=== PATIENT | female | born 2000 | race Caucasian/White ===

== ENCOUNTER 2020-06-06 16:24 | Emergency (ER) | payer OTHER ==
[~2020-06-06] VITALS: Ht 162.6 cm; Wt 103.1 kg
--- NOTE | 2020-06-06 19:58 | REPVR ---
PROCEDURE INFORMATION: Exam: US Nonobstetric Pelvis; Complete Exam date and time: 06/06/2020 7:34 PM Age: 19 years old Clinical indication: Pelvic pain; Additional info: R lower pelvic pain TECHNIQUE: Imaging protocol: Transabdominal pelvic nonobstetric ultrasound. Complete exam. Real time ultrasound with image documentation. COMPARISON: No relevant prior studies available. FINDINGS: Uterus/cervix: Uterus measures 7.9 x 3.5 by 4.2 cm in size. No focal uterine mass. Endometrial stripe appears homogeneous, measuring 12 mm in thickness. Right adnexa: Right ovary measures 3.4 x 1.5 x 2.0 cm in size. No dominant mass or cyst. Left adnexa: Left ovary measures 3.4 x 4.2 x 2.0 cm in size. No dominant mass or cyst. Intraperitoneal space: No abnormal volume of free fluid within the pelvis. Bladder: Urinary bladder is unremarkable Other findings: Doppler flow is documented in both ovaries. IMPRESSION: Unremarkable pelvic ultrasound. Electronically signed by: Cy Garcia On 06/06/2020 19:58:16 PM
[2020-06-06 20:16] LABS: CHLAMYDIA DNA AMPLIFICATION NEGATIVE (NEGATIVE); GC DNA AMPLIFICATION NEGATIVE (NEGATIVE)
[2020-06-06 21:07] VITALS: BP 128/72
== END 2020-06-06 21:09 | disposition home or self-care (01) ==
LOC: M ED 16:24
DX: N89.8 Other specified noninflammatory disorders of vagina (principal); R10.30 Lower abdominal pain, unspecified

== ENCOUNTER 2020-09-18 21:30 | Emergency (ER) | payer OTHER ==
[~2020-09-18] VITALS: Ht 165.1 cm; Wt 106.9 kg
[2020-09-18] MEDS ORDERED: FLUORESCEIN OPHTH 1 MG STRIP OU ONE (22:30)
[2020-09-18] MEDS ORDERED: TETRACAINE 0.5% OPHTH SOLN 4ML OU ONE (22:30)
[2020-09-18] MEDS ORDERED: CIPR0.3S6 OD (23:38)
[2020-09-18] MEDS ORDERED: CIPROFLOXACIN 0.3% OPHTH SOLN 2.5ML OD ONE (23:45)
[2020-09-19 00:24] VITALS: BP 131/74
== END 2020-09-19 00:25 | disposition home or self-care (01) ==
LOC: M ED 21:30
DX: S05.01XA Injury of conjunctiva and corneal abrasion without foreign body, right eye, initial encounter (principal); X58.XXXA Exposure to other specified factors, initial encounter; Y92.89 Other specified places as the place of occurrence of the external cause

== ENCOUNTER 2021-03-13 08:36 | Emergency (ER) | payer OTHER ==
[~2021-03-13] VITALS: Ht 165.1 cm; Wt 98.6 kg
[~2021-03-13 08:36] MED LIST: CIPR0.3S6 OD
[2021-03-13] MEDS ORDERED: PREN29CH2 PO (08:49)
[2021-03-13] MEDS ORDERED: NS 1,000 ML IV ONE (10:35)
[2021-03-13 11:39] LABS: BASO % 0.1 % (0.0-1.0); EOS % 0.3 % (0.0-3.0); HEMATOCRIT 32.9 % (36.0-47.0); HEMOGLOBIN 11.2 g/dl (12.0-15.5); LYMPH # 1.2 10^3/uL (1.5-5.0); LYMPH % 16.1 % (24.0-44.0); MEAN CORPUSCULAR HEMOGLOBIN 28.3 pg (27.0-33.0); MEAN CORPUSCULAR VOLUME 83.1 fl (80.0-96.0); MONO # 0.3 10^3/uL (0.0-0.8); MONO % 3.9 % (2.0-8.0); NEUTROPHILS % 79.3 % (36.0-66.0); PLATELET COUNT, AUTOMATED 226 10^3/uL (150-450); RED BLOOD COUNT 3.96 10^6/uL (4.00-5.40); WHITE BLOOD COUNT 7.5 10^3/uL (4.0-10.0)
[2021-03-13 12:02] VITALS: BP 124/66
[2021-03-13 12:12] LABS: ALBUMIN 2.8 GM/DL (3.2-5.2); ALT/SGPT 14 U/L (12-78); BILIRUBIN,DIRECT < 0.1 MG/DL (0.0-0.2); BILIRUBIN,TOTAL 0.4 MG/DL (0.2-1.0); BLOOD UREA NITROGEN 6 MG/DL (7-18); CALCIUM LEVEL 8.3 MG/DL (8.5-10.1); CARBON DIOXIDE LEVEL 27 MEQ/L (21-32); CHLORIDE LEVEL 106 MEQ/L (98-107); CK-MB VALUE MASS < 1.0 NG/ML (<3.6); CPK CREATINE PHOSPHOKINASE 48 U/L (26-192); FREE T4 1.05 NG/DL (0.76-1.46); GLOMERULAR FILTRATION RATE > 60.0 (>60); GLUCOSE, FASTING 75 MG/DL (70-100); MB/CK RELATIVE INDEX 2.08 (< OR =4); POTASSIUM SERUM 4.4 MEQ/L (3.5-5.1); SODIUM LEVEL 137 MEQ/L (136-145); THYROID STIMULATING HORMONE 0.671 uIU/ML (0.358-3.740); TOTAL PROTEIN 6.3 GM/DL (6.4-8.2); TROPONIN I < 0.02 NG/ML (< 0.10)
--- NOTE | 2021-03-13 21:56 | ECGEPIP ---
[facility] - ED Test Date: 2021-03-13 Pat Name: KATIE GRESHAM Department: Room: - Gender: Female [employer]: JENNY : 2000 Requested By: ALBIN GOFF PA-C Order Number: [id number] Reading MD: Yonny Goins Measurements Intervals [place] Rate: 61 P: 23 NH: 144 QRS: 44 QRSD: 86 T: 22 QT: 428 QTc: 430 Interpretive Statements Sinus rhythm with marked sinus arrhythmia NO PRIORS FOR COMPARISON Electronically Signed on 03-13-2021 21:56:05 EDT by Yonny Goins
== END 2021-03-13 12:54 | disposition home or self-care (01) ==
LOC: M ED 08:36 → EDBD 08:36 → M ED 12:54
DX: R55 Syncope and collapse (principal)

== ENCOUNTER → 2021-05-01 | Outpatient (CLI) | payer OTHER ==
[~2021-05-01] MED LIST changes: +PREN29CH2 PO
--- NOTE | 2021-05-01 15:25 | REP ---
INDICATION: PREG, GROWTH. COMPARISON: None. TECHNIQUE: Real-time sonographic evaluation of the gravid uterus performed utilizing transabdominal and endovaginal technique. FINDINGS: Estimated gestational age is24 weeks 3 days, EDC 08/18/2021. Today's measurements indicate appropriate growth. Presentation: Cephalic Placenta posterior, grade 0, without evidence of placenta previa. heart rate is recorded at 144 beats per minute. Amniotic fluid is subjectively normal. ZBIGNIEW 20.3, normal 9.8-22.0 Closed cervical length is measured at 4.1 cm. Biometry chart: BPD: 64 mm, 25 weeks 5 days, 78th percentile. HC: 231 mm, 25 weeks 1 days, 65th percentile AC: 208 mm, 25 weeks 2 days, 69th percentile Femur length: 46 mm, 25 weeks 2 days, 69th percentile HC to AC ratio: 1.11, normal range 1.02-1.21. Estimated weight: 796g, 81st percentile. anatomy: Cranium: Grossly normal Nose/lips/profile: Grossly normal Four chamber heart: Grossly normal Left ventricular outflow tract: Grossly normal Left-sided stomach: Grossly normal Bladder: Grossly normal Cord Insertion: Grossly normal 3 vessel cord: Grossly normal IMPRESSION: Viable single intrauterine gestation as above. <Electronically signed by Humberto Lynch > 05/01/21 [id number]
== END ==
LOC: M RAD 14:15
PROVIDERS: ATTEND Obstetrics & Gynecology
DX: Z36.89 Encounter for other specified antenatal screening (principal); Z3A.24 24 weeks gestation of pregnancy

== ENCOUNTER 2021-07-18 16:07 | Outpatient (CLI) | payer OTHER ==
[~2021-07-18] VITALS: Ht 165.1 cm; Wt 109.3 kg
[2021-07-18 16:33] VITALS: BP 130/62
[2021-07-18] MEDS ORDERED: HOME MED LIST COMPLETE! XX SCH (17:05)
[2021-07-18 17:31] VITALS: BP 128/71
[2021-07-18 17:47] LABS: APPEARANCE, URINE HAZY (CLEAR); BACTERIA, URINE AUTO 1+ (NEGATIVE); BILIRUBIN, URINE AUTO NEGATIVE (NEGATIVE); BLOOD, URINE BLOOD NEGATIVE (NEGATIVE); COLOR, URINE YELLOW (YELLOW); GLUCOSE, URINE (UA) AUTO NEGATIVE (NEGATIVE); KETONE, URINE AUTO NEGATIVE (NEGATIVE); LEUKOCYTE ESTERASE, URINE AUTO TRACE (NEGATIVE); MUCUS, URINE SMALL (NEGATIVE); NITRITE, URINE AUTO NEGATIVE (NEGATIVE); PROTEIN, URINE AUTO NEGATIVE (NEGATIVE); RBC, URINE AUTO 1 /HPF (0-3); SPECIFIC GRAVITY URINE AUTO 1.012 (1.002-1.035); SQUAMOUS EPITHELIAL CELL UR AU 2 /HPF (0-6); UROBILINOGEN, URINE AUTO 0.2 mg/dL (0.0-2.0); WBC, URINE AUTO 4 /HPF (0-3)
[2021-07-18 18:25] VITALS: BP 111/58
[2021-07-18] MEDS ORDERED: CEPH500T PO (19:00)
== END 2021-07-18 19:10 | disposition home or self-care (01) ==
LOC: M LDO 16:07
PROVIDERS: ATTEND Obstetrics & Gynecology
DX: O47.03 False labor before 37 completed weeks of gestation, third trimester (principal); O26.893 Other specified pregnancy related conditions, third trimester; R25.2 Cramp and spasm; O23.43 Unspecified infection of urinary tract in pregnancy, third trimester; Z3A.35 35 weeks gestation of pregnancy
CPT/HCPCS: 59025; 81001; 87086; G0378; G0463

== ENCOUNTER 2021-07-25 15:33 | Inpatient (IN) | payer OTHER ==
[~2021-07-25] VITALS: Ht 165.1 cm; Wt 107.6 kg
[2021-07-25] VITALS (8 sets, daily range): BP systolic 90–125; BP diastolic 54–80
[~2021-07-25 15:33] MED LIST changes: +CEPH500T PO
[2021-07-25] MEDS ORDERED: HOME MED LIST COMPLETE! XX SCH (15:45)
[2021-07-25] MEDS: LR 1,000 ML IV SCH (17:35)
[2021-07-25] MEDS ORDERED: miSOPROStol 25MCG 1/4 TABLET PO ONE (19:05)
[2021-07-25 19:46] LABS: HEMATOCRIT 32.9 % (36.0-47.0); MEAN CORPUSCULAR HEMOGLOBIN 28.4 pg (27.0-33.0); MEAN CORPUSCULAR HGB CONC 33.4 g/dl (32.0-36.5); MEAN CORPUSCULAR VOLUME 84.8 fl (80.0-96.0); PLATELET COUNT, AUTOMATED 226 10^3/uL (150-450); RED BLOOD COUNT 3.88 10^6/uL (4.00-5.40); WHITE BLOOD COUNT 9.4 10^3/uL (4.0-10.0)
[2021-07-26] VITALS (57 sets, daily range): BP systolic 85–135; BP diastolic 48–90
[2021-07-26] MEDS ORDERED: OXYTOCIN DRIP 30 UNITS in IV 1 EA IV SCH ×2 (00:35→18:45)
[2021-07-26] MEDS: LR 1,000 ML IV SCH ×4 (01:35→11:58)
[2021-07-26] MEDS ORDERED: FENTANYL 2MCG/ML ROPIVACAINE 0.2% IN 0.9% NACL 100ML IVBAG As Ordered ONE (05:28)
[2021-07-26] MEDS ORDERED: ONDANSETRON 4MG/2ML VIAL IV PRN ×2 (06:15→18:45)
[2021-07-26] MEDS ORDERED: REFRIGERATOR IV KEYS XX PRN (06:15)
[2021-07-26] MEDS ORDERED: LACTATED RINGER'S 1000 ML IV PRN (06:15)
[2021-07-26] MEDS ORDERED: diphenhydrAMINE 50MG/ML VIAL (J1200) IV PRN (06:15)
[2021-07-26] MEDS ORDERED: EPIDURAL COMMENT XX SCH (06:15)
[2021-07-26] MEDS ORDERED: NALOXONE INJ 0.4MG/1ML VIAL (J2310 PER 1MG) IV PRN (06:15)
[2021-07-26] MEDS ORDERED: EPIDURAL/PCA KEYS XX PRN (06:15)
[2021-07-26] MEDS: FENTANYL/ROPIVACAINE/NACL BAG 100 ML EPIDURAL SCH ×2 (06:15→20:35)
[2021-07-26] MEDS: ePHEDrine SULFATE 25 MG/5 ML(5MG/ML) SYRINGE IV PRN ×4 (07:35→08:37)
[2021-07-26] MEDS ORDERED: ePHEDrine SULFATE 25 MG/5 ML(5MG/ML) SYRINGE IV PRN (08:40)
[2021-07-26] MEDS ORDERED: IBUPROFEN 600MG TAB PO PRN (18:45)
[2021-07-26] MEDS ORDERED: MEASLES,MUMPS,RUBELLA VACCINE INJ (MMR-II) (90707) SC SCH (18:45)
[2021-07-26] MEDS ORDERED: ACETAMINOPHEN TAB 650MG DOSE (2X325MG) PO PRN (18:45)
[2021-07-26] MEDS ORDERED: DOCUSATE SODIUM 100MG CAPSULE PO PRN (18:45)
[2021-07-26] MEDS ORDERED: IBUPROFEN 800 MG TAB PO PRN (18:45)
[2021-07-26] MEDS ORDERED: DIBUCAINE 1% OINTMENT 30GM TOP PRN (18:45)
[2021-07-26] MEDS ORDERED: RHOGAM 300 MCG (1500 IU) INJ (J2790) IM SCH (18:45)
[2021-07-26] MEDS ORDERED: ACETAMINOPHEN 500 MG TAB PO PRN (18:45)
[2021-07-27] MEDS: FENTANYL/ROPIVACAINE/NACL BAG 100 ML EPIDURAL SCH (02:15)
[2021-07-27 05:26] VITALS: BP 116/75
[2021-07-27] MEDS: PRENATAL VITAMINS CHEWABLE TABLET PO SCH (08:12)
[2021-07-27 18:00] VITALS: BP 137/91
[2021-07-28 06:00] VITALS: BP 139/63
[2021-07-28] MEDS ORDERED: ACET-683 PO (08:22)
[2021-07-28] MEDS ORDERED: IBUP80TA PO (08:22)
[2021-07-28] MEDS: PRENATAL VITAMINS CHEWABLE TABLET PO SCH (09:00)
[2021-07-28 14:00] VITALS: BP 132/78
[2021-07-28 18:07] VITALS: BP 137/80
== END 2021-07-28 19:45 | disposition home or self-care (01) | DRG 807 ==
LOC: M LDO 15:33 → M LDI 17:05 → M OBS 07-26 21:53
PROVIDERS: ADMIT Registered Nurse; ATTEND Obstetrics & Gynecology
PROC: 3E033VJ Introduction of Other Hormone into Peripheral Vein, Percutaneous Approach (ICD-10-PCS; 2021-07-25)
PROC: 10E0XZZ Delivery of Products of Conception, External Approach (ICD-10-PCS; principal; 2021-07-26)
DX: O42.013 Preterm premature rupture of membranes, onset of labor within 24 hours of rupture, third trimester (principal); Z37.0 Single live birth; O99.02 Anemia complicating childbirth; D64.9 Anemia, unspecified; Z3A.36 36 weeks gestation of pregnancy; O76 Abnormality in fetal heart rate and rhythm complicating labor and delivery